=== PATIENT | female | born 1935 | race Caucasian/White ===

== ENCOUNTER 2016-09-16 14:39 | Emergency (ER) | payer OTHER, MEDICARE ==
[~2016-09-16] VITALS: Ht 165.1 cm; Wt 59.0 kg
[2016-09-16] MEDS ORDERED: TRIAMTERENE-HC1 EAC3 PO (15:25)
[2016-09-16] MEDS ORDERED: VITAMIN D2000 UNIT PO (15:26)
[2016-09-16] MEDS ORDERED: CO Q-10150 MG PO (15:26)
[2016-09-16] MEDS ORDERED: CURCUMIN1 GM PO (15:26)
[2016-09-16] MEDS ORDERED: PROBIOTIC1 EACH PO (15:26)
[2016-09-16] MEDS ORDERED: VITAMIN C500 M8 PO (15:27)
[2016-09-16] MEDS ORDERED: APPLE CIDER VI300 MG PO (15:28)
[2016-09-16] MEDS ORDERED: VITAMIN B COMP1 EACH PO (15:28)
--- NOTE | 2016-09-16 15:31 | ED MVC/FALL/TRAUMA COMPLAINT ---
History of Present Illness General Chief Complaint: Fall Stated Complaint: FALL, NOSE BLEEDING Source: patient, family Exam Limitations: no limitations Vital Signs & Intake/Output Vital Signs & Intake/Output Vital Signs Date Time Temp Pulse Resp B/P B/P Pulse O2 O2 Flow FiO2 Mean Ox Delivery Rate 09/16 1818 98.3 74 15 142/74 100 Room Air 09/16 1658 97.8 73 20 160/68 99 Room Air 09/16 1533 99 Room Air 09/16 1442 98.4 79 18 174/77 98 Room Air Allergies Coded Allergies: No Known Allergies (09/16/16) Reconcile Medications Ascorbic Acid (Vitamin C) (Unknown Strength) TABLET (Unknown Dose) PO DAILY SUPPLEMENT (Reported) Cholecalciferol (Vitamin D3) (Vitamin D) (Unknown Strength) CAPSULE (Unknown Dose) PO DAILY SUPPLEMENT (Reported) Cider Vinegar (Apple Cider Vinegar) (Unknown Strength) TABLET (Unknown Dose) PO DAILY SUPPLEMENT (Reported) Lactobacillus Acidophilus (Probiotic) (Unknown Strength) CAPSULE (Unknown Dose ) PO DAILY PROBIOTIC (Reported) Triamterene/Hydrochlorothiazid (Triamterene-Hctz 37.5-25 MG Cp) 37.5 MG-25 MG CAPSULE 1 CAP PO DAILY HEARING (Reported) Turmeric (Curcumin) (Unknown Strength) POWDER (Unknown Dose) PO DAILY SUPPLEMENT (Reported) Ubidecarenone (Co Q-10) (Unknown Strength) CAPSULE (Unknown Dose) PO DAILY SUPPLEMENT (Reported) Vitamin B Complex 1 EACH CAPSULE 1 CAP PO DAILY SUPPLEMENT (Reported) Triage Note: 81 Y/O FEMALE PRESENTS WITH EPISTAXIS S/P TRIP AND FALL; WAS HOLDING A POOL COVER AND TRIPPED CAUSING FALL FORWARD. STRUCK FACE BUT DENIES LOC. HAS SWELLING AND BRUISING TO NOSE WITH L SIDED EPISTAXIS. DENIES OTHER COMPLAINTS TAKEN TO ROOM 11 FOR EVAL Triage Nurses Notes Reviewed? yes Onset: Abrupt Duration: hour(s): Timing: single episode today Severity: moderate Injuries/Fall Location: head, face Method of Injury: fall Loss of Consciousness: no loss of consciousness No Modifying Factors: none HPI: 81-year-old female presents to emergency department complaining of fall. Patient states that while adjusting her pool cover she slipped on it and fell forward onto her face and nose. She was unable to control her nose bleeding while at home however she states that now bleeding has begun to subside. She denies loss of consciousness, blackout, syncope. Pain is located on her nose and between her eyes. She denies headache, dizziness, lightheadedness, blurry vision, photophobia, nausea, abdominal pain, extremity pain. (BLAIRE NORRIS) Past History Travel History Traveled to [place] past 21 day No Medical History Any Pertinent Medical History? see below for history Neurological: NONE EENT: NONE Cardiovascular: NONE Respiratory: NONE Gastrointestinal: NONE Hepatic: NONE Renal: NONE Musculoskeletal: NONE Psychiatric: NONE Endocrine: NONE Blood Disorders: NONE Cancer(s): NONE SCADA OPERATOR/Reproductive: ovarian cysts Surgical History Surgical History: non-contributory Psychosocial History What is your primary language Mauritian Tobacco Use: Never used Family History Hx Contributory? No (BLAIRE NORRIS) Review of Systems Review of Systems Constitutional: Reports: no symptoms. Eyes: Reports: no symptoms. Ears, Nose, Throat, Mouth: Reports: see HPI. Respiratory: Reports: no symptoms. Cardiovascular: Reports: no symptoms. Gastrointestinal/Abdominal: Reports: no symptoms. Genitourinary: Reports: no symptoms. Musculoskeletal: Reports: no symptoms. Skin: Reports: see HPI. Neurological/Psychological: Reports: no symptoms. All Other Systems: Reviewed and Negative (BLAIRE NORRIS) Physical Exam Physical Exam General Appearance: well developed/nourished, no apparent distress, alert, awake Head: active bleeding, evidence of injury, lacerations (on nose), ecchymosis medial to both eyes with tenderness Eyes: Bilateral: PERRL, EOMI. 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 No Severe Sepsis Present: No Septic Shock Present: No (BLAIRE NORRIS) Progress Differential Diagnosis: C/T/L spine injury, ext injury, ICH, spinal cord injury, orbit fracture, facial fracture, epistaxsis, septal hematoma Plan of Care: Orders Procedure Date/time Status CT HEAD WO IV CONTRAST 09/[address] MAXILLOFACIAL W/O CON 09/16 1528 Active Patient is sitting comfortably in chair, she is in no acute distress. Minor laceration above lip was closed with skin glue. Mildly depressed, comminuted fracture of the nasal bone detected on scans. Septal hematoma present on exam, small in size, does not require drainage here in the emergency room, will observe for now, patient will follow up with [facility] referral. She was instructed to take tylenol as needed for pain, she will follow up with her PCP and return here with any worsening or new symptoms or concerns. Patient seen and evaluated by Dr. Rodriguez. Patient is in agreement with plan of care. (REYNOLD NIELSEN,BLAIRE) Diagnostic Imaging: Viewed by Me: CT Scan. Discussed w/RAD: CT Scan. Radiology Impression: SERVICE DATE: 09/16/16 EXAM TYPE: CAT - CT HEAD WO IV CONTRAST; CT MAXILLOFACIAL W/O CON EXAMINATION: CT of the facial bones without contrast, CT of the brain without contrast CLINICAL INFORMATION: Fall after tripping over a tarp with injury to the face and skull. Nose pain and bleeding, bruising around the orbits. COMPARISON: None TECHNIQUE: The patient was scanned helically through the facial bones and head without intravenous administration of contrast. Coronal and sagittal reformatted images were generated. DLP: 1359.9 mGy-cm FINDINGS: Facial bones: There is a mildly depressed comminuted fracture involving the nasal bone. The maxillary spines are intact. The orbits, maxillary bone, zygomatic arches, and mandible are intact. There is a retention cyst in the lower right maxillary antrum. The paranasal sinuses are otherwise clear. There is no evidence of air or blood within the orbital contents. Brain: There is no evidence of acute intracranial hemorrhage or territorial infarction. No abnormal mass-effect or midline shift is seen. Brown to white matter differentiation is well preserved. No extra-axial fluid collections are identified. The ventricles are normal in size. There is no abnormal attenuation within the brain parenchyma. The osseous structures and soft tissues are normal. The mastoid air cells are well-aerated. IMPRESSION: 1. Mildly depressed, comminuted fracture of the nasal bone. 2. No other facial bone fracture. 3. No evidence of trauma to the brain or calvarium. DICTATED BY: MICAH GARCIA MD DATE/TIME DICTATED:09/16/161620 (BLAIRE NORRIS) Departure Departure Disposition: HOME OR SELF CARE Condition: Stable Clinical Impression Primary Impression: Head injury Secondary Impressions: Nasal bone fractures, Nasal septal hematoma Referrals: UNKNOWN Additional Instructions: Follow-up with ear nose and throat doctor. Return if any recurrent nose bleed, severe headache, vomiting, or any other concerns worsening symptoms. Please go over all results of today's visit with your primary care doctor. Contact your primary care doctor to let them know you were here in the emergency room. There may be nonspecific findings which may not be related to your visit today here in the emergency room but may require further evaluation and chronic monitoring by your primary care doctor. If you had a laceration today the chance of foreign body always remains. You should follow-up with your primary care doctor for recheck in 3-5 days for a wound check. If you had an x-ray done there is a chance that a fracture could have been missed on initial read and you should follow-up with your primary care doctor for repeat x-rays if symptoms persist. If your blood pressure was elevated here in the emergency room please have rechecked by her primary care doctor within the next 48 hours by your primary care doctor. If you were prescribed a narcotic here in the emergency room or any type of controlled substances you're not allowed to drive while taking this medication or operate any type of heavy machinery. Narcotics can make you feel lightheaded dizziness nausea and can cause constipation. You may need to pickle processor a stool softener. Thank you for choosing [facility] emergency room. Please return to the emergency room immediately if you have any other concerns worsening of symptoms. Departure Forms: Customer Survey General Discharge Information Comments Note written by Gwen Curiel PA-C under my direct supervision (BLAIRE NORRIS) PA/THERMOSTAT MACHINE TENDER Co-Sign Statement Statement: ED Attending supervision documentation- [X] I saw and evaluated the patient. I have also reviewed all the pertinent lab results and diagnostic results. I agree with the findings and the plan of care as documented in the PA's/THERMOSTAT MACHINE TENDER's documentation. [X] I have reviewed the ED Record and agree with the PA's/THERMOSTAT MACHINE TENDER's documentation. [] Additions or exceptions (if any) to the PAs/THERMOSTAT MACHINE TENDER's note and plan are summarized below: [] (NICHOL HICKS,DONNELL) Procedures Laceration/Wound Repair Progress: 1 cm laceration vertical above right lip, irrigated with peroxide saline, Dermabond use, sterile technique, patient tolerated procedure well, wound well approximated, (REYNOLD NIELSEN,BLAIRE)
--- NOTE | 2016-09-16 16:33 | CT SCAN REPORT ---
EXAMINATION: CT of the facial bones without contrast, CT of the brain without contrast CLINICAL INFORMATION: Fall after tripping over a tarp with injury to the face and skull. Nose pain and bleeding, bruising around the orbits. COMPARISON: None TECHNIQUE: The patient was scanned helically through the facial bones and head without intravenous administration of contrast. Coronal and sagittal reformatted images were generated. DLP: 1359.9 mGy-cm FINDINGS: Facial bones: There is a mildly depressed comminuted fracture involving the nasal bone. The maxillary spines are intact. The orbits, maxillary bone, zygomatic arches, and mandible are intact. There is a retention cyst in the lower right maxillary antrum. The paranasal sinuses are otherwise clear. There is no evidence of air or blood within the orbital contents. Brain: There is no evidence of acute intracranial hemorrhage or territorial infarction. No abnormal mass-effect or midline shift is seen. Brown to white matter differentiation is well preserved. No extra-axial fluid collections are identified. The ventricles are normal in size. There is no abnormal attenuation within the brain parenchyma. The osseous structures and soft tissues are normal. The mastoid air cells are well-aerated. IMPRESSION: 1. Mildly depressed, comminuted fracture of the nasal bone. 2. No other facial bone fracture. 3. No evidence of trauma to the brain or calvarium.
[2016-09-16 18:18] VITALS: BP 142/74
== END 2016-09-16 18:18 ==
LOC: ERH 14:39
DX: S09.90XA Unspecified injury of head, initial encounter (principal); S02.2XXA Fracture of nasal bones, initial encounter for closed fracture; S01.511A Laceration without foreign body of lip, initial encounter; S00.33XA Contusion of nose, initial encounter; W01.0XXA Fall on same level from slipping, tripping and stumbling without subsequent striking against object, initial encounter; Y93.89 Activity, other specified; Y92.017 Garden or yard in single-family (private) house as the place of occurrence of the external cause